=== PATIENT | female | born 1960 | race Caucasian/White ===

== ENCOUNTER 2021-02-22 10:41 | Inpatient (IN) ==
[2021-02-22] MEDS ORDERED: DEXAMETHASONE 10 MG/1 ML VIAL IV STA (11:00)
[2021-02-22 11:19] LABS: ABG HCO3 23.6 MMOL/L (20-26); ABG Oxygen Saturation 98.6 % (95-100); ABG PCO2 64.8 MM HG (35-48); ABG TCO2 25.7 MMOL/L (23-27); Pt O2 Delivery Device BIPAP
[2021-02-22 11:41] LABS: Basophils % 0.1 % (0.0-0.8); Eosinophils # 0.1 10*3/uL (0.0-0.87); Eosinophils % 0.5 % (0.00-10.9); Hematocrit 32.5 VOL% (35.7-47.0); Hemoglobin 9.9 GM/DL (12.0-16.0); Immature Granulocytes % 0.9 %; Immature Granulocytes Absolute 0.09 #; Lymphocytes # 0.7 10*3/uL (1.4-4.0); Lymphocytes % 7.3 % (21.3-54.2); Mean Corpuscular HGB Conc 30.5 GM/DL (32-36); Mean Corpuscular Volume 104.8 FL (87-102); Mean Platelet Volume 10.4 FL (9.6-12.0); Monocytes % 13.1 % (1.7-12.7); Neutrophils % 78.1 % (38.7-73.9); Platelet Count 134 T/CUMM (130-400); Red Cell Distribution Width 15.1 % (9.3-17.3); White Blood Count 10.1 T/CUMM (4-12)
[2021-02-22 11:54] LABS: PT Patient Result 11.3 SECS (10.5-12.0); Partial Thromboplastin Time 30.9 SECS (23.9-33.8)
[2021-02-22 12:10] LABS: Alanine Aminotransferase 14 U/L (13-56); Albumin 2.2 G/DL (3.4-5.0); Alkaline Phosphatase 64 U/L (45-117); Aspartate Amino Transferase 25 U/L (0-37); Bilirubin,Total < 0.39 MG/DL (0.20-1.00); Blood Urea Nitrogen 48 MG/DL (7-18); Calcium 7.8 MG/DL (8.5-10.1); Carbon Dioxide 26 MMOL/L (21-32); Estimated Glom Filtration Rate 42 ML/MIN; Glucose 154 MG/DL (74-106); Osmolality,Calculated 292.5 MOS/KG (273-304); Potassium 5.3 MMOL/L (3.5-5.1); Sodium 139 MMOL/L (136-145); Total Protein 5.7 G/DL (6.4-8.2)
[2021-02-22 12:31] LABS: Band Neutrophils 13 % (0-10); Eosinophils 4 % (0-10); Lymphocytes 12 % (20-55); Segmented Neutrophils 69 % (50-85); Total Cells Counted 100
[2021-02-22 12:33] LABS: Anisocytosis 1+
[2021-02-22 12:34] LABS: Reactive Lymphocytes Few
[2021-02-22 12:35] LABS: Platelet Estimate Normal
[2021-02-22 12:37] LABS: Macrocytosis Slight
[2021-02-22 12:39] LABS: Spherocytes 1+
[2021-02-22] MEDS ORDERED: ACETAMINOPHEN 325 MG TABLET PO PRN (13:06)
[2021-02-22] MEDS ORDERED: ALBUTEROL 2.5 MG/3 ML NEB RESP TX PRN (13:06)
[2021-02-22] MEDS ORDERED: ONDANSETRON 4 MG/2 ML VIAL IV PRN (13:06)
[2021-02-22] MEDS ORDERED: LEVOFLOXACIN INJ 750 MG/150 ML PREMIX IV STA (13:11)
[2021-02-22] MEDS ORDERED: methylPREDNISolone SOD SUC 40 MG/1 ML VIAL IV STA (13:12)
[2021-02-22] MEDS ORDERED: DEXTROSE 50% 25 GM/50 ML VIAL IV PRN (13:13)
[2021-02-22] MEDS ORDERED: GLUCAGON 1 MG VIAL IM PRN (13:13)
[2021-02-22] MEDS ORDERED: diphenhydrAMINE CAP 25 MG CAPSULE PO PRN (13:13)
[2021-02-22] MEDS ORDERED: NITROGLYCERIN SL 0.4 MG TABLET SL PRN (13:13)
[2021-02-22] MEDS ORDERED: ALBUTEROL/IPRATROPIUM 3 ML NEB RESP TX PRN (13:13)
[2021-02-22 14:07] LABS: ABG Base Excess -0.9 MMOL/L (-2.5-2.5); ABG HCO3 23.6 MMOL/L (20-26); ABG Oxygen Saturation 96.7 % (95-100); ABG PH 7.215 (7.35-7.45); ABG TCO2 26.6 MMOL/L (23-27); Pt O2 Delivery Device BIPAP
[2021-02-22 14:13] LABS: ABG PCO2 70.7 MM HG (35-48)
[2021-02-22] MEDS ORDERED: busPIRone 5 MG TABLET PO SCH (15:00)
[2021-02-22] MEDS: FUROSEMIDE 40 MG/4 ML VIAL IV SCH (15:12)
[2021-02-22] MEDS: ENOXAPARIN 40 MG/0.4 ML SYRINGE SUBCUT SCH (15:14)
[2021-02-22] MEDS: LEVOFLOXACIN INJ 750 MG/150 ML PREMIX IV SCH (15:25)
[2021-02-22] MEDS: methylPREDNISolone SOD SUC 40 MG/1 ML VIAL IV SCH ×2 (15:26→22:58)
[2021-02-22] MEDS ORDERED: BUDESONIDE 0.5 MG/2 ML NEB RESP TX ONE (19:09)
[2021-02-22] MEDS: BUDESONIDE 0.5 MG/2 ML NEB RESP TX SCH (19:11)
[2021-02-22] MEDS: INSULIN LISPRO 100 UNIT/ML SUBCUT SCH (19:16)
[2021-02-22] MEDS: NYSTATIN POWDER 15 GM BOTTLE TOP SCH (19:16)
[2021-02-22] MEDS: busPIRone 10 MG TABLET PO SCH (22:54)
[2021-02-22] MEDS: GABAPENTIN 100 MG CAPSULE PO SCH (22:54)
[2021-02-22] MEDS: GABAPENTIN 300 MG CAPSULE PO SCH (22:54)
[2021-02-22] MEDS: carvediloL 6.25 MG TABLET PO SCH (22:54)
[2021-02-22] MEDS: DORZOLAMIDE/TIMOLOL OPH SOLN 10 ML BOTTLE BOTH EYES SCH (22:58)
[2021-02-22] MEDS: LATANOPROST 0.005% OPH SOLN 2.5 ML BOTTLE BOTH EYES SCH (22:58)
[2021-02-23] MEDS: INSULIN LISPRO 100 UNIT/ML SUBCUT SCH ×5 (00:56→20:21)
[2021-02-23] MEDS: NYSTATIN POWDER 15 GM BOTTLE TOP SCH ×4 (00:57→21:01)
[2021-02-23] MEDS ORDERED: hydrALAZINE 20 MG/1 ML VIAL IV PRN (01:03)
[2021-02-23] MEDS ORDERED: LABETALOL 20 MG/4 ML SYRINGE IV ONE ×2 (05:46→05:47)
[2021-02-23 06:20] LABS: Immature Granulocytes Absolute 0.07 #; Lymphocytes # 0.5 10*3/uL (1.4-4.0); Mean Corpuscular HGB Conc 30.6 GM/DL (32-36); Mean Corpuscular Volume 100.8 FL (87-102); Mean Platelet Volume 9.6 FL (9.6-12.0); Monocytes % 3.5 % (1.7-12.7); Neutrophils % 88.5 % (38.7-73.9); Platelet Count 170 T/CUMM (130-400); Red Blood Count 3.57 MC/CUMM (3.8-5.5); Red Cell Distribution Width 14.6 % (9.3-17.3); White Blood Count 6.8 T/CUMM (4-12)
[2021-02-23 06:43] LABS: Albumin 2.3 G/DL (3.4-5.0); Bilirubin,Total 0.6 MG/DL (0.20-1.00); Osmolality,Calculated 290.7 MOS/KG (273-304); Potassium 4.6 MMOL/L (3.5-5.1); Risk Ratio 5.75; Total Protein 7.3 G/DL (6.4-8.2)
[2021-02-23] MEDS: BUDESONIDE 0.5 MG/2 ML NEB RESP TX SCH ×2 (07:40→19:45)
[2021-02-23] MEDS: ESTRADIOL 2 MG TABLET PO SCH (09:02)
[2021-02-23] MEDS: DILTIAZEM CD 240 MG CAPSULE PO SCH (09:02)
[2021-02-23] MEDS: busPIRone 10 MG TABLET PO SCH ×3 (09:13→21:01)
[2021-02-23] MEDS: MELOXICAM 7.5 MG TABLET PO SCH (09:13)
[2021-02-23] MEDS: OMEGA 3 ACID ETHYL ESTERS 1 GM CAPSULE PO SCH (09:18)
[2021-02-23] MEDS: ASPIRIN EC 325 MG TABLET PO SCH (09:19)
[2021-02-23] MEDS: methylPREDNISolone SOD SUC 40 MG/1 ML VIAL IV SCH ×2 (09:19→15:41)
[2021-02-23] MEDS: GABAPENTIN 100 MG CAPSULE PO SCH ×2 (09:20→21:01)
[2021-02-23] MEDS: FENOFIBRATE 145 MG TABLET PO SCH (09:20)
[2021-02-23] MEDS: carvediloL 6.25 MG TABLET PO SCH ×2 (09:20→21:01)
[2021-02-23] MEDS: PANTOPRAZOLE 40 MG TABLET PO SCH (09:21)
[2021-02-23] MEDS: FUROSEMIDE 40 MG/4 ML VIAL IV SCH (09:21)
[2021-02-23 11:10] LABS: ABG Base Excess 3.3 MMOL/L (-2.5-2.5); ABG HCO3 27.3 MMOL/L (20-26); ABG Oxygen Saturation 96.3 % (95-100); ABG PCO2 61.8 MM HG (35-48); ABG PH 7.311 (7.35-7.45); ABG PO2 93.9 MM HG (80-95); ABG TCO2 28.2 MMOL/L (23-27)
[2021-02-23] MEDS: ENOXAPARIN 40 MG/0.4 ML SYRINGE SUBCUT SCH (13:30)
[2021-02-23] MEDS: LEVOFLOXACIN INJ 750 MG/150 ML PREMIX IV SCH (14:00)
[2021-02-23] MEDS: DORZOLAMIDE/TIMOLOL OPH SOLN 10 ML BOTTLE BOTH EYES SCH ×2 (14:51→22:26)
[2021-02-23] MEDS ORDERED: PNEUMOCOCCAL VACCINE (23 VALENT) 0.5 ML VIAL IM ONE (16:46)
[2021-02-23] MEDS: ARFORMOTEROL 15 MCG/2 ML NEB RESP TX SCH (19:45)
[2021-02-23] MEDS: GABAPENTIN 300 MG CAPSULE PO SCH (21:01)
[2021-02-23] MEDS: LATANOPROST 0.005% OPH SOLN 2.5 ML BOTTLE BOTH EYES SCH (22:26)
[2021-02-24] MEDS: methylPREDNISolone SOD SUC 40 MG/1 ML VIAL IV SCH ×3 (00:16→16:13)
[2021-02-24 05:22] LABS: Basophils % 0.1 % (0.0-0.8); Hematocrit 34.1 VOL% (35.7-47.0); Hemoglobin 10.9 GM/DL (12.0-16.0); Immature Granulocytes % 0.6 %; Immature Granulocytes Absolute 0.05 #; Lymphocytes # 0.6 10*3/uL (1.4-4.0); Lymphocytes % 7.1 % (21.3-54.2); Mean Corpuscular Volume 99.7 FL (87-102); Monocytes % 4.2 % (1.7-12.7); Platelet Count 185 T/CUMM (130-400); Red Blood Count 3.42 MC/CUMM (3.8-5.5); Red Cell Distribution Width 14.3 % (9.3-17.3); White Blood Count 8.1 T/CUMM (4-12)
[2021-02-24 05:49] LABS: Calcium 8.8 MG/DL (8.5-10.1); Osmolality,Calculated 295.5 MOS/KG (273-304); Potassium 4.7 MMOL/L (3.5-5.1)
[2021-02-24] MEDS: ARFORMOTEROL 15 MCG/2 ML NEB RESP TX SCH ×2 (07:20→22:30)
[2021-02-24] MEDS: BUDESONIDE 0.5 MG/2 ML NEB RESP TX SCH ×2 (07:20→22:30)
[2021-02-24] MEDS ORDERED: EVOLOCUMAB 140 MG/ML SUBCUT SCH (09:00)
[2021-02-24] MEDS: PSYLLIUM POWDER 3.7 GM/PACK PO SCH (10:16)
[2021-02-24] MEDS: ASPIRIN EC 325 MG TABLET PO SCH (10:16)
[2021-02-24] MEDS: PANTOPRAZOLE 40 MG TABLET PO SCH (10:16)
[2021-02-24] MEDS: FENOFIBRATE 145 MG TABLET PO SCH (10:16)
[2021-02-24] MEDS: AZITHROMYCIN 250 MG TABLET PO SCH (10:16)
[2021-02-24] MEDS: DILTIAZEM CD 240 MG CAPSULE PO SCH (10:17)
[2021-02-24] MEDS: GABAPENTIN 100 MG CAPSULE PO SCH ×2 (10:17→20:58)
[2021-02-24] MEDS: OMEGA 3 ACID ETHYL ESTERS 1 GM CAPSULE PO SCH (10:17)
[2021-02-24] MEDS: carvediloL 6.25 MG TABLET PO SCH ×2 (10:17→20:58)
[2021-02-24] MEDS: ESTRADIOL 2 MG TABLET PO SCH (10:18)
[2021-02-24] MEDS: THEOPHYLLINE ER (24 HR) 400 MG CAPSULE PO SCH (10:18)
[2021-02-24] MEDS: MELOXICAM 7.5 MG TABLET PO SCH (10:19)
[2021-02-24] MEDS: busPIRone 10 MG TABLET PO SCH ×3 (10:20→20:58)
[2021-02-24] MEDS: DORZOLAMIDE/TIMOLOL OPH SOLN 10 ML BOTTLE BOTH EYES SCH ×2 (10:21→20:59)
[2021-02-24] MEDS: NYSTATIN POWDER 15 GM BOTTLE TOP SCH ×4 (10:22→20:58)
[2021-02-24] MEDS: FUROSEMIDE 40 MG/4 ML VIAL IV SCH (10:22)
[2021-02-24] MEDS: INSULIN LISPRO 100 UNIT/ML SUBCUT SCH ×4 (10:38→20:58)
[2021-02-24] MEDS: ENOXAPARIN 40 MG/0.4 ML SYRINGE SUBCUT SCH (16:13)
[2021-02-24] MEDS: LEVOFLOXACIN INJ 750 MG/150 ML PREMIX IV SCH (16:14)
[2021-02-24] MEDS: LATANOPROST 0.005% OPH SOLN 2.5 ML BOTTLE BOTH EYES SCH (20:59)
[2021-02-24] MEDS: GABAPENTIN 300 MG CAPSULE PO SCH (22:51)
[2021-02-25] MEDS: methylPREDNISolone SOD SUC 40 MG/1 ML VIAL IV SCH ×6 (00:27→21:05)
[2021-02-25] MEDS: ARFORMOTEROL 15 MCG/2 ML NEB RESP TX SCH ×2 (07:02→20:12)
[2021-02-25] MEDS: BUDESONIDE 0.5 MG/2 ML NEB RESP TX SCH ×2 (07:02→20:16)
[2021-02-25] MEDS: THEOPHYLLINE ER (24 HR) 400 MG CAPSULE PO SCH (10:11)
[2021-02-25] MEDS: MELOXICAM 7.5 MG TABLET PO SCH (10:11)
[2021-02-25] MEDS: ESTRADIOL 2 MG TABLET PO SCH (10:11)
[2021-02-25] MEDS: ASPIRIN EC 325 MG TABLET PO SCH (10:11)
[2021-02-25] MEDS: busPIRone 10 MG TABLET PO SCH ×3 (10:11→21:05)
[2021-02-25] MEDS: PANTOPRAZOLE 40 MG TABLET PO SCH (10:12)
[2021-02-25] MEDS: OMEGA 3 ACID ETHYL ESTERS 1 GM CAPSULE PO SCH (10:12)
[2021-02-25] MEDS: carvediloL 6.25 MG TABLET PO SCH ×2 (10:12→21:05)
[2021-02-25] MEDS: GABAPENTIN 100 MG CAPSULE PO SCH ×2 (10:12→21:05)
[2021-02-25] MEDS: DILTIAZEM CD 240 MG CAPSULE PO SCH (10:12)
[2021-02-25] MEDS: AZITHROMYCIN 250 MG TABLET PO SCH (10:12)
[2021-02-25] MEDS: FENOFIBRATE 145 MG TABLET PO SCH (10:12)
[2021-02-25] MEDS: NYSTATIN POWDER 15 GM BOTTLE TOP SCH ×4 (10:15→21:06)
[2021-02-25] MEDS: DORZOLAMIDE/TIMOLOL OPH SOLN 10 ML BOTTLE BOTH EYES SCH ×2 (10:16→21:06)
[2021-02-25] MEDS: FUROSEMIDE 40 MG/4 ML VIAL IV SCH ×3 (10:22→14:15)
[2021-02-25] MEDS: INSULIN LISPRO 100 UNIT/ML SUBCUT SCH ×4 (10:23→21:04)
[2021-02-25] MEDS: ENOXAPARIN 40 MG/0.4 ML SYRINGE SUBCUT SCH (13:15)
[2021-02-25] MEDS: LEVOFLOXACIN INJ 750 MG/150 ML PREMIX IV SCH (13:16)
[2021-02-25] MEDS: LATANOPROST 0.005% OPH SOLN 2.5 ML BOTTLE BOTH EYES SCH (21:06)
[2021-02-25] MEDS: GABAPENTIN 300 MG CAPSULE PO SCH (21:06)
[2021-02-26] MEDS: methylPREDNISolone SOD SUC 40 MG/1 ML VIAL IV SCH (04:13)
[2021-02-26 04:55] LABS: Hematocrit 34.9 VOL% (35.7-47.0); Hemoglobin 11.1 GM/DL (12.0-16.0); Immature Granulocytes % 1.1 %; Immature Granulocytes Absolute 0.07 #; Lymphocytes # 0.7 10*3/uL (1.4-4.0); Lymphocytes % 10.6 % (21.3-54.2); Mean Corpuscular HGB Conc 31.8 GM/DL (32-36); Mean Corpuscular Volume 98.6 FL (87-102); Mean Platelet Volume 9.7 FL (9.6-12.0); Monocytes % 4.7 % (1.7-12.7); Neutrophils % 83.6 % (38.7-73.9); Platelet Count 196 T/CUMM (130-400); Red Blood Count 3.54 MC/CUMM (3.8-5.5); Red Cell Distribution Width 13.5 % (9.3-17.3); White Blood Count 6.4 T/CUMM (4-12)
[2021-02-26 05:14] LABS: Calcium 9.1 MG/DL (8.5-10.1); Osmolality,Calculated 301.5 MOS/KG (273-304); Potassium 4.9 MMOL/L (3.5-5.1)
[2021-02-26] MEDS: ARFORMOTEROL 15 MCG/2 ML NEB RESP TX SCH ×2 (07:24→20:05)
[2021-02-26] MEDS: BUDESONIDE 0.5 MG/2 ML NEB RESP TX SCH ×2 (07:24→20:05)
[2021-02-26] MEDS: MELOXICAM 7.5 MG TABLET PO SCH (11:00)
[2021-02-26] MEDS: ESTRADIOL 2 MG TABLET PO SCH (11:01)
[2021-02-26] MEDS: busPIRone 10 MG TABLET PO SCH ×3 (11:01→21:17)
[2021-02-26] MEDS: OMEGA 3 ACID ETHYL ESTERS 1 GM CAPSULE PO SCH (11:01)
[2021-02-26] MEDS: AZITHROMYCIN 250 MG TABLET PO SCH (11:01)
[2021-02-26] MEDS: GABAPENTIN 100 MG CAPSULE PO SCH ×2 (11:03→21:16)
[2021-02-26] MEDS: ASPIRIN EC 325 MG TABLET PO SCH (11:03)
[2021-02-26] MEDS: THEOPHYLLINE ER (24 HR) 400 MG CAPSULE PO SCH (11:04)
[2021-02-26] MEDS: PANTOPRAZOLE 40 MG TABLET PO SCH (11:04)
[2021-02-26] MEDS: FENOFIBRATE 145 MG TABLET PO SCH (11:04)
[2021-02-26] MEDS: DILTIAZEM CD 240 MG CAPSULE PO SCH (11:04)
[2021-02-26] MEDS: NYSTATIN POWDER 15 GM BOTTLE TOP SCH ×4 (11:04→21:17)
[2021-02-26] MEDS: INSULIN LISPRO 100 UNIT/ML SUBCUT SCH ×4 (11:05→21:16)
[2021-02-26] MEDS: DORZOLAMIDE/TIMOLOL OPH SOLN 10 ML BOTTLE BOTH EYES SCH ×2 (11:06→21:17)
[2021-02-26] MEDS: PSYLLIUM POWDER 3.7 GM/PACK PO SCH (11:11)
[2021-02-26] MEDS: carvediloL 6.25 MG TABLET PO SCH ×2 (11:11→21:16)
[2021-02-26] MEDS: FUROSEMIDE 40 MG/4 ML VIAL IV SCH (11:13)
[2021-02-26] MEDS: ENOXAPARIN 40 MG/0.4 ML SYRINGE SUBCUT SCH (15:27)
[2021-02-26] MEDS: LEVOFLOXACIN INJ 750 MG/150 ML PREMIX IV SCH (15:36)
[2021-02-26] MEDS ORDERED: methylPREDNISolone SOD SUC 40 MG/1 ML VIAL IV SCH (21:00)
[2021-02-26] MEDS: GABAPENTIN 300 MG CAPSULE PO SCH (21:17)
[2021-02-26] MEDS: LATANOPROST 0.005% OPH SOLN 2.5 ML BOTTLE BOTH EYES SCH (21:19)
[2021-02-27 05:24] LABS: Calcium 8.5 MG/DL (8.5-10.1); Osmolality,Calculated 291.7 MOS/KG (273-304); Potassium 4.4 MMOL/L (3.5-5.1)
[2021-02-27] MEDS: ARFORMOTEROL 15 MCG/2 ML NEB RESP TX SCH ×2 (07:21→20:00)
[2021-02-27] MEDS: BUDESONIDE 0.5 MG/2 ML NEB RESP TX SCH ×2 (07:26→20:10)
[2021-02-27] MEDS: THEOPHYLLINE ER (24 HR) 400 MG CAPSULE PO SCH (09:33)
[2021-02-27] MEDS: ESTRADIOL 2 MG TABLET PO SCH (09:33)
[2021-02-27] MEDS: AZITHROMYCIN 250 MG TABLET PO SCH (09:33)
[2021-02-27] MEDS: OMEGA 3 ACID ETHYL ESTERS 1 GM CAPSULE PO SCH (09:33)
[2021-02-27] MEDS: ASPIRIN EC 325 MG TABLET PO SCH (09:34)
[2021-02-27] MEDS: FENOFIBRATE 145 MG TABLET PO SCH (09:34)
[2021-02-27] MEDS: GABAPENTIN 100 MG CAPSULE PO SCH ×2 (09:34→22:32)
[2021-02-27] MEDS: busPIRone 10 MG TABLET PO SCH ×3 (09:34→22:32)
[2021-02-27] MEDS: MELOXICAM 7.5 MG TABLET PO SCH (09:34)
[2021-02-27] MEDS: DILTIAZEM CD 240 MG CAPSULE PO SCH (09:34)
[2021-02-27] MEDS: predniSONE 20 MG TABLET PO SCH (09:34)
[2021-02-27] MEDS: PANTOPRAZOLE 40 MG TABLET PO SCH (09:34)
[2021-02-27] MEDS: NYSTATIN POWDER 15 GM BOTTLE TOP SCH ×4 (09:35→22:33)
[2021-02-27] MEDS: carvediloL 6.25 MG TABLET PO SCH ×2 (09:35→22:32)
[2021-02-27] MEDS: FUROSEMIDE 40 MG TABLET PO SCH (09:35)
[2021-02-27] MEDS: DORZOLAMIDE/TIMOLOL OPH SOLN 10 ML BOTTLE BOTH EYES SCH ×2 (09:35→22:33)
[2021-02-27] MEDS: INSULIN LISPRO 100 UNIT/ML SUBCUT SCH ×4 (09:36→22:33)
[2021-02-27] MEDS: LEVOFLOXACIN INJ 750 MG/150 ML PREMIX IV SCH (12:45)
[2021-02-27] MEDS: ENOXAPARIN 40 MG/0.4 ML SYRINGE SUBCUT SCH (12:45)
[2021-02-27] MEDS: GABAPENTIN 300 MG CAPSULE PO SCH (22:32)
[2021-02-27] MEDS: LATANOPROST 0.005% OPH SOLN 2.5 ML BOTTLE BOTH EYES SCH (22:39)
[2021-02-28 06:12] LABS: Calcium 8.6 MG/DL (8.5-10.1); Osmolality,Calculated 289.7 MOS/KG (273-304); Potassium 3.9 MMOL/L (3.5-5.1)
[2021-02-28] MEDS: PANTOPRAZOLE 40 MG TABLET PO SCH (09:27)
[2021-02-28] MEDS: OMEGA 3 ACID ETHYL ESTERS 1 GM CAPSULE PO SCH (09:27)
[2021-02-28] MEDS: carvediloL 6.25 MG TABLET PO SCH (09:27)
[2021-02-28] MEDS: GABAPENTIN 100 MG CAPSULE PO SCH (09:27)
[2021-02-28] MEDS: predniSONE 20 MG TABLET PO SCH (09:27)
[2021-02-28] MEDS: DILTIAZEM CD 240 MG CAPSULE PO SCH (09:28)
[2021-02-28] MEDS: ESTRADIOL 2 MG TABLET PO SCH (09:28)
[2021-02-28] MEDS: PSYLLIUM POWDER 3.7 GM/PACK PO SCH (09:28)
[2021-02-28] MEDS: MELOXICAM 7.5 MG TABLET PO SCH (09:28)
[2021-02-28] MEDS: ASPIRIN EC 325 MG TABLET PO SCH (09:28)
[2021-02-28] MEDS: busPIRone 10 MG TABLET PO SCH (09:28)
[2021-02-28] MEDS: FENOFIBRATE 145 MG TABLET PO SCH (09:28)
[2021-02-28] MEDS: AZITHROMYCIN 250 MG TABLET PO SCH (09:28)
[2021-02-28] MEDS: NYSTATIN POWDER 15 GM BOTTLE TOP SCH ×2 (09:29→14:36)
[2021-02-28] MEDS: DORZOLAMIDE/TIMOLOL OPH SOLN 10 ML BOTTLE BOTH EYES SCH (09:29)
[2021-02-28] MEDS: THEOPHYLLINE ER (24 HR) 400 MG CAPSULE PO SCH (09:29)
[2021-02-28] MEDS: FUROSEMIDE 40 MG TABLET PO SCH (09:30)
[2021-02-28] MEDS: INSULIN LISPRO 100 UNIT/ML SUBCUT SCH ×2 (10:11→11:19)
[2021-02-28] MEDS: BUDESONIDE 0.5 MG/2 ML NEB RESP TX SCH (11:15)
[2021-02-28] MEDS: ARFORMOTEROL 15 MCG/2 ML NEB RESP TX SCH (11:15)
[2021-02-28] MEDS: LEVOFLOXACIN INJ 750 MG/150 ML PREMIX IV SCH (14:36)
[2021-02-28] MEDS: ENOXAPARIN 40 MG/0.4 ML SYRINGE SUBCUT SCH (14:39)
[2021-02-28 14:43] VITALS: BP 154/67
== END 2021-02-28 14:40 | disposition home or self-care (01) | DRG 189 ==
LOC: N.ED 10:41 → N.EDINP 13:06 → SUATTDRO 13:06 → N.TELES 02-23 16:07
PROVIDERS: ADMIT Internal Medicine; ATTEND Internal Medicine Geriatric Medicine